=== PATIENT | male | born 1955 | race Caucasian/White ===

== ENCOUNTER → 2024-08-20 07:12 | Outpatient (REF) | payer BC, SELFPAY ==
[2024-08-20 09:44] LABS: PSA, Total - Screen 3.29 ng/ml (0.0-4.0)
== END ==
LOC: REG 07:12
PROVIDERS: ATTENDING PHYSICIAN Urology; FAMILY PHYSICIAN Family Medicine
DX: N40.1 Benign prostatic hyperplasia with lower urinary tract symptoms (principal)
CPT/HCPCS: 36415; G0103

== ENCOUNTER → 2025-05-30 11:54 | Outpatient (REF) | payer BC, SELFPAY | LOC: HWRCS 11:54 | PROVIDERS: ATTENDING PHYSICIAN Internal Medicine Cardiovascular Disease; FAMILY PHYSICIAN Family Medicine | DX: R07.9 Chest pain, unspecified (principal) | CPT/HCPCS: 78452; 93017; A9500; J2785 ==